=== PATIENT | female | born 1960 | race Caucasian/White ===

== ENCOUNTER 2017-08-06 18:12 | Inpatient (IN) ==
[2017-08-06] MEDS ORDERED: LEVOFLOXACIN INJ 750 MG in PREMIX 1 EACH IV STA (18:39)
[2017-08-06] MEDS ORDERED: METOCLOPRAMIDE 10 MG/2 ML VIAL IV STA (18:39)
[2017-08-06] MEDS ORDERED: SODIUM CHLORIDE 0.9% 1,000 ML IV STA (18:39)
[2017-08-06] MEDS ORDERED: ONDANSETRON 4 MG/2 ML VIAL IV STA (18:39)
[2017-08-06 19:05] LABS: Hematocrit 33.5 VOL% (35.7-47.0); Hemoglobin 10.2 GM/DL (12.0-16.0); Immature Granulocytes % 0.7 %; Immature Granulocytes Absolute 0.02 #; Lymphocytes % 35.2 % (21.3-54.2); Mean Corpuscular HGB Conc 30.4 GM/DL (32-36); Mean Corpuscular Hemoglobin 23 PG (27-34); Mean Corpuscular Volume 75.5 FL (87-102); Mean Platelet Volume 12.1 FL (9.6-12.0); Monocytes # 0.2 10*3/uL (0.11-0.8); Monocytes % 6.6 % (1.7-12.7); Neutrophils # 1.7 10*3/uL (1.4-7.4); Neutrophils % 57.5 % (38.7-73.9); Platelet Count 125 T/CUMM (130-400); Red Blood Count 4.44 MC/CUMM (3.8-5.5); Red Cell Distribution Width 15.5 % (9.3-17.3); White Blood Count 2.9 T/CUMM (4-12)
[2017-08-06] MEDS ORDERED: METOCLOPRAMIDE 10 MG/2 ML VIAL ONE (19:15)
[2017-08-06] MEDS ORDERED: ONDANSETRON 4 MG/2 ML VIAL ONE (19:15)
[2017-08-06] MEDS ORDERED: LEVOFLOXACIN INJ 0 ML IV ONE (19:15)
[2017-08-06] MEDS ORDERED: ALBUTEROL/IPRATROPIUM 3 ML NEB RESP TX STA (19:21)
[2017-08-06 19:37] LABS: Lactic Acid 1.4 MMOL/L (0.4-2.0)
[2017-08-06 19:38] LABS: Bilirubin,Total 0.4 MG/DL (0.2-1.0); Osmolality,Calculated 268.8 MOS/KG (273-304); Potassium 3.5 MMOL/L (3.5-5.1); Total Protein 6.7 G/DL (6.4-8.3)
[2017-08-06 19:46] LABS: Apearance,Urine CLOUDY (Clear); Bacteria,Urine Occasional /HPF (Few); Bilirubin,Urine Negative (Negative); Blood, Urine Large mg/dL (Negative); Glucose,Urine (UA) >=500 mg/dL (Negative); Ketones,Urine 20 mg/dL (Negative); Mucus,Urine Occasional /LPF (Occasional); Nitrite,Urine Negative (Negative); Protein,Urine 100 MG/DL; RBC,Urine 585 /HPF (0-4); Squamous Epithelial Cell,Urine Occasional /HPF (0-10); Urine Color Yellow (Yellow); Urine Specific Gravity 1.032 (1.001-1.035); Urine Urobilinogen < 2.0 EU/DL (0.2-1.0); WBC,Urine 11 /HPF (0-6)
[2017-08-06] MEDS ORDERED: GLUCAGON 1 MG VIAL IM PRN (21:42)
[2017-08-06] MEDS ORDERED: ONDANSETRON 4 MG/2 ML VIAL IV PRN (21:42)
[2017-08-06] MEDS ORDERED: DEXTROSE 50% 25 GM/50 ML VIAL IV PRN (21:42)
[2017-08-06] MEDS ORDERED: ALBUTEROL/IPRATROPIUM 3 ML NEB RESP TX PRN (21:42)
[2017-08-06] MEDS ORDERED: HYDROmorphone 2 MG/1 ML VIAL IV PRN (21:42)
[2017-08-06 22:08] LABS: Burr Cells Few; Microcytosis 1+; Platelet Estimate Decreased; Poikilocytosis 1+
[2017-08-06 22:09] LABS: Hypochromasia Slight
[2017-08-06] MEDS: INSULIN REGULAR 100 UNIT/ML SUBCUT SCH (23:00)
[2017-08-07] MEDS ORDERED: traMADol 50 MG TABLET PO PRN (00:37)
[2017-08-07] MEDS ORDERED: BENZONATATE 100 MG CAPSULE PO PRN (00:37)
[2017-08-07 06:37] LABS: Hematocrit 32.1 VOL% (35.7-47.0); Hemoglobin 9.7 GM/DL (12.0-16.0); Immature Granulocytes % 0.4 %; Immature Granulocytes Absolute 0.01 #; Lymphocytes # 1.1 10*3/uL (1.4-4.0); Lymphocytes % 45.7 % (21.3-54.2); Mean Corpuscular HGB Conc 30.2 GM/DL (32-36); Mean Corpuscular Hemoglobin 23 PG (27-34); Mean Corpuscular Volume 75.4 FL (87-102); Mean Platelet Volume 12.6 FL (9.6-12.0); Monocytes # 0.2 10*3/uL (0.11-0.8); Monocytes % 7.8 % (1.7-12.7); Neutrophils # 1.1 10*3/uL (1.4-7.4); Neutrophils % 46.1 % (38.7-73.9); Platelet Count 116 T/CUMM (130-400); Red Blood Count 4.26 MC/CUMM (3.8-5.5); Red Cell Distribution Width 15.8 % (9.3-17.3); White Blood Count 2.5 T/CUMM (4-12)
[2017-08-07 07:22] LABS: Alanine Aminotransferase 22 U/L (13-56); Albumin 2.5 G/DL (3.4-5.0); Alkaline Phosphatase 100 U/L (45-117); Aspartate Amino Transferase 34 U/L (0-37); Bilirubin,Total < 0.39 MG/DL (0.2-1.0); Blood Urea Nitrogen 9 MG/DL (7-18); Calcium 7.8 MG/DL (8.5-10.1); Glucose 184 MG/DL (74-106); Osmolality,Calculated 276.8 MOS/KG (273-304); Potassium 3.8 MMOL/L (3.5-5.1); Sodium 137 MMOL/L (136-145); Total Protein 5.6 G/DL (6.4-8.3)
[2017-08-07 07:49] LABS: Hypochromasia 2+; Macrocytosis 1+
[2017-08-07] MEDS: INSULIN REGULAR 100 UNIT/ML SUBCUT SCH ×4 (08:28→21:12)
[2017-08-07] MEDS: INSULIN GLARGINE 100 UNIT/ML SUBCUT SCH (08:30)
[2017-08-07] MEDS: amLODIPine 10 MG TABLET PO SCH (08:32)
[2017-08-07 12:43] LABS: HIV Antigen/Antibody Result Nonreactive (Nonreactive)
[2017-08-07] MEDS: LOSARTAN 25 MG TABLET PO SCH (13:15)
[2017-08-07] MEDS: SODIUM CHLORIDE 0.9% 1,000 ML IV SCH (13:15)
[2017-08-07] MEDS: ACETAMINOPHEN 325 MG TABLET PO PRN (21:11)
[2017-08-07] MEDS: ATORVASTATIN 10 MG TABLET PO SCH (21:12)
[2017-08-07] MEDS: LEVOFLOXACIN INJ 750 MG in PREMIX 1 EACH IV SCH (21:43)
[2017-08-08] MEDS: SODIUM CHLORIDE 0.9% 1,000 ML IV SCH ×2 (04:19→08:33)
[2017-08-08 06:37] LABS: Hematocrit 32.9 VOL% (35.7-47.0); Hemoglobin 9.8 GM/DL (12.0-16.0); Immature Granulocytes % 0.4 %; Immature Granulocytes Absolute 0.01 #; Lymphocytes % 43.8 % (21.3-54.2); Mean Corpuscular HGB Conc 29.8 GM/DL (32-36); Mean Corpuscular Hemoglobin 23 PG (27-34); Mean Corpuscular Volume 76.3 FL (87-102); Mean Platelet Volume 12.8 FL (9.6-12.0); Monocytes # 0.2 10*3/uL (0.11-0.8); Monocytes % 8.1 % (1.7-12.7); Neutrophils # 1.1 10*3/uL (1.4-7.4); Neutrophils % 47.7 % (38.7-73.9); Platelet Count 123 T/CUMM (130-400); Red Blood Count 4.31 MC/CUMM (3.8-5.5); Red Cell Distribution Width 15.9 % (9.3-17.3); White Blood Count 2.4 T/CUMM (4-12)
[2017-08-08 06:56] LABS: Magnesium 1.8 MG/DL (1.8-2.4); Osmolality,Calculated 282.5 MOS/KG (273-304); Potassium 3.6 MMOL/L (3.5-5.1)
[2017-08-08] MEDS: LOSARTAN 25 MG TABLET PO SCH (09:10)
[2017-08-08] MEDS: INSULIN GLARGINE 100 UNIT/ML SUBCUT SCH (09:10)
[2017-08-08] MEDS: INSULIN REGULAR 100 UNIT/ML SUBCUT SCH ×4 (09:10→20:38)
[2017-08-08] MEDS: amLODIPine 10 MG TABLET PO SCH (09:10)
[2017-08-08 11:56] LABS: Band Neutrophils 6 % (0-10); Elliptocytes 1+; Hypochromasia 2+; Lymphocytes 26 % (20-55); Microcytosis 1+; Platelet Estimate Adequate; Segmented Neutrophils 59 % (50-85); Total Cells Counted 100
[2017-08-08] MEDS: ACETAMINOPHEN 325 MG TABLET PO PRN (13:49)
[2017-08-08] MEDS: methylPREDNISolone SOD SUC 40 MG/1 ML VIAL IV SCH ×2 (14:11→21:28)
[2017-08-08 15:53] LABS: Hepatitis A Ab IgM Quant 0.13 Index; Hepatitis A Ab IgM Result Negative (Negative); Hepatitis B Core IgM Quant 0.12 Index; Hepatitis B Core IgM Result Negative (Negative); Hepatitis B Surface Ag Quant < 0.10 Index; Hepatitis B Surface Ag Result Negative (Negative); Hepatitis C Virus Ab Quant 0.16 Index; Hepatitis C Virus Ab Result Negative (Negative)
[2017-08-08] MEDS: cefTRIAXone 1,000 MG in SYRINGE 1 EACH IV SCH (18:53)
[2017-08-08] MEDS: ATORVASTATIN 10 MG TABLET PO SCH (20:38)
[2017-08-08] MEDS: LEVOFLOXACIN INJ 750 MG in PREMIX 1 EACH IV SCH (21:27)
[2017-08-09] MEDS: SODIUM CHLORIDE 0.9% 1,000 ML IV SCH ×3 (00:26→13:24)
[2017-08-09 04:11] LABS: Hematocrit 34.4 VOL% (35.7-47.0); Hemoglobin 10.4 GM/DL (12.0-16.0); Immature Granulocytes % 0.9 %; Immature Granulocytes Absolute 0.02 #; Lymphocytes # 0.8 10*3/uL (1.4-4.0); Lymphocytes % 34.5 % (21.3-54.2); Mean Corpuscular HGB Conc 30.2 GM/DL (32-36); Mean Corpuscular Hemoglobin 23 PG (27-34); Mean Corpuscular Volume 75.6 FL (87-102); Mean Platelet Volume 12.6 FL (9.6-12.0); Monocytes # 0.1 10*3/uL (0.11-0.8); Monocytes % 4.1 % (1.7-12.7); Neutrophils # 1.3 10*3/uL (1.4-7.4); Neutrophils % 60.5 % (38.7-73.9); Platelet Count 142 T/CUMM (130-400); Red Blood Count 4.55 MC/CUMM (3.8-5.5); Red Cell Distribution Width 15.9 % (9.3-17.3); White Blood Count 2.2 T/CUMM (4-12)
[2017-08-09 04:59] LABS: Osmolality,Calculated 286.3 MOS/KG (273-304); Potassium 3.5 MMOL/L (3.5-5.1)
[2017-08-09 05:09] LABS: Band Neutrophils 4 % (0-10); Eosinophils 2 % (0-10); Giant Platelets Few; Lymphocytes 41 % (20-55); Platelet Estimate Normal; Segmented Neutrophils 53 % (50-85); Total Cells Counted 100
[2017-08-09] MEDS: methylPREDNISolone SOD SUC 40 MG/1 ML VIAL IV SCH ×3 (06:21→22:37)
[2017-08-09] MEDS: INSULIN GLARGINE 100 UNIT/ML SUBCUT SCH (10:18)
[2017-08-09] MEDS: amLODIPine 10 MG TABLET PO SCH (10:18)
[2017-08-09] MEDS: LOSARTAN 25 MG TABLET PO SCH (10:18)
[2017-08-09] MEDS: INSULIN REGULAR 100 UNIT/ML SUBCUT SCH ×4 (10:19→22:35)
[2017-08-09 18:19] LABS: Apearance,Urine CLEAR (Clear); Bilirubin,Urine Negative (Negative); Blood, Urine Negative (Negative); Glucose,Urine (UA) >=500 mg/dL (Negative); Ketones,Urine 20 mg/dL (Negative); Mucus,Urine Occasional /LPF (Occasional); Nitrite,Urine Negative (Negative); Protein,Urine Negative; RBC,Urine <1 /HPF (0-4); Squamous Epithelial Cell,Urine Occasional /HPF (0-10); Urine Color Yellow (Yellow); Urine Specific Gravity 1.014 (1.001-1.035); Urine Urobilinogen < 2.0 EU/DL (0.2-1.0); WBC,Urine <1 /HPF (0-6)
[2017-08-09] MEDS: cefTRIAXone 1,000 MG in SYRINGE 1 EACH IV SCH (18:30)
[2017-08-09] MEDS: LEVOFLOXACIN INJ 750 MG in PREMIX 1 EACH IV SCH (22:37)
[2017-08-09] MEDS: ATORVASTATIN 10 MG TABLET PO SCH (22:37)
[2017-08-10] MEDS: SODIUM CHLORIDE 0.9% 1,000 ML IV SCH (01:06)
[2017-08-10] MEDS: methylPREDNISolone SOD SUC 40 MG/1 ML VIAL IV SCH ×2 (05:24→15:20)
[2017-08-10 06:45] LABS: Hemoglobin 9.9 GM/DL (12.0-16.0); Immature Granulocytes % 0.4 %; Immature Granulocytes Absolute 0.02 #; Lymphocytes # 1.1 10*3/uL (1.4-4.0); Lymphocytes % 19.5 % (21.3-54.2); Mean Corpuscular HGB Conc 30.9 GM/DL (32-36); Mean Corpuscular Hemoglobin 23 PG (27-34); Mean Corpuscular Volume 74.6 FL (87-102); Mean Platelet Volume 12.6 FL (9.6-12.0); Monocytes # 0.2 10*3/uL (0.11-0.8); Monocytes % 4.4 % (1.7-12.7); Neutrophils # 4.2 10*3/uL (1.4-7.4); Neutrophils % 75.7 % (38.7-73.9); Platelet Count 185 T/CUMM (130-400); Red Blood Count 4.29 MC/CUMM (3.8-5.5); Red Cell Distribution Width 16.2 % (9.3-17.3); White Blood Count 5.5 T/CUMM (4-12)
[2017-08-10 07:12] LABS: Calcium 8.2 MG/DL (8.5-10.1); Magnesium 2.2 MG/DL (1.8-2.4); Osmolality,Calculated 287.3 MOS/KG (273-304); Potassium 3.9 MMOL/L (3.5-5.1)
[2017-08-10] MEDS: INSULIN REGULAR 100 UNIT/ML SUBCUT SCH ×3 (07:35→17:28)
[2017-08-10] MEDS: amLODIPine 10 MG TABLET PO SCH (09:27)
[2017-08-10] MEDS: LOSARTAN 25 MG TABLET PO SCH (09:27)
[2017-08-10] MEDS: INSULIN GLARGINE 100 UNIT/ML SUBCUT SCH (09:28)
[2017-08-10 12:36] VITALS: BP 128/65
== END 2017-08-10 16:40 | disposition home or self-care (01) | DRG 195 ==
LOC: N.ED 18:12 → N.EDINP 20:23 → N.5E 20:35
PROVIDERS: ADMIT Family Medicine; ATTEND Family Medicine

== ENCOUNTER 2019-06-22 11:17 | Inpatient (IN) ==
[2019-06-22] MEDS ORDERED: SODIUM CHLORIDE 0.9% 1,000 ML IV STA (13:03)
[2019-06-22 13:47] LABS: Basophils % 0.3 % (0.0-0.8); Eosinophils # 0.1 10*3/uL (0.0-0.87); Eosinophils % 2.2 % (0.00-10.9); Hematocrit 43.5 VOL% (35.7-47.0); Hemoglobin 14.3 GM/DL (12.0-16.0); Immature Granulocytes % 0.3 %; Immature Granulocytes Absolute 0.02 #; Lymphocytes # 1.9 10*3/uL (1.4-4.0); Mean Corpuscular HGB Conc 32.9 GM/DL (32-36); Mean Corpuscular Volume 88.1 FL (87-102); Mean Platelet Volume 11.3 FL (9.6-12.0); Monocytes % 7.9 % (1.7-12.7); Neutrophils % 57.3 % (38.7-73.9); Platelet Count 221 T/CUMM (130-400); Red Blood Count 4.94 MC/CUMM (3.8-5.5); Red Cell Distribution Width 13.1 % (9.3-17.3); White Blood Count 5.9 T/CUMM (4-12)
[2019-06-22 13:54] LABS: INR 0.9; PT Patient Result 10.3 SECS (9.6-12.2); Partial Thromboplastin Time 24.7 SECS (20.8-36.0)
[2019-06-22 13:57] LABS: Apearance,Urine CLOUDY (Clear); Bilirubin,Urine Negative (Negative); Blood, Urine Negative (Negative); Glucose,Urine (UA) >=500 mg/dL (Negative); Ketones,Urine Negative (Negative); Mucus,Urine Occasional /LPF (Occasional); Nitrite,Urine Negative (Negative); Protein,Urine 30 MG/DL; Squamous Epithelial Cell,Urine Occasional /HPF (0-10); Urine Color Yellow (Yellow); Urine Urobilinogen < 2.0 EU/DL (0.2-1.0); WBC,Urine 1 /HPF (0-6)
[2019-06-22 13:59] LABS: Barbiturates Screen,Urine Negative (Negative); Benzodiazepines Screen,Urine Negative (Negative); Cannabinoid Screen,Urine Negative (Negative); Opiate Screen,Urine Negative (Negative); Phencyclidine Screen,Urine Negative (Negative)
[2019-06-22 14:11] LABS: Alanine Aminotransferase 23 U/L (13-56); Albumin 3.8 G/DL (3.4-5.0); Alkaline Phosphatase 112 U/L (45-117); Aspartate Amino Transferase 17 U/L (0-37); Blood Urea Nitrogen 11 MG/DL (7-18); Calcium 9.8 MG/DL (8.5-10.1); Estimated Glom Filtration Rate 56 ML/MIN; Glucose 300 MG/DL (74-106); Osmolality,Calculated 288.4 MOS/KG (273-304); Total Protein 7.6 G/DL (6.4-8.3)
[2019-06-22] MEDS ORDERED: ONDANSETRON 4 MG/2 ML VIAL IV PRN ×2 (15:24→17:25)
[2019-06-22] MEDS ORDERED: LABETALOL 20 MG/4 ML SYRINGE IV PRN (15:24)
[2019-06-22] MEDS ORDERED: BISACODYL 5 MG TABLET PO PRN (15:24)
[2019-06-22] MEDS ORDERED: GLUCAGON 1 MG VIAL IM PRN ×2 (15:45→17:25)
[2019-06-22] MEDS ORDERED: INSULIN LISPRO 100 UNIT/ML SUBCUT SCH (17:25)
[2019-06-22] MEDS ORDERED: ACETAMINOPHEN 325 MG TABLET PO PRN (17:25)
[2019-06-22] MEDS ORDERED: DEXTROSE 10% 250 ML BAG IV PRN (17:25)
[2019-06-22] MEDS: ASPIRIN 325 MG TABLET PO SCH (17:27)
[2019-06-22] MEDS: PANTOPRAZOLE 40 MG TABLET PO SCH (17:27)
[2019-06-22] MEDS: ENOXAPARIN 40 MG/0.4 ML SYRINGE SUBCUT SCH (17:27)
[2019-06-22] MEDS: ACETAMINOPHEN 325 MG TABLET PO PRN ×2 (17:27→20:57)
[2019-06-22] MEDS: INSULIN LISPRO 100 UNIT/ML SUBCUT SCH ×2 (17:34→20:58)
[2019-06-22] MEDS: GABAPENTIN 600 MG TABLET PO SCH ×2 (18:13→20:57)
[2019-06-22] MEDS: SODIUM CHLORIDE 0.9% 1,000 ML IV SCH (18:43)
[2019-06-22 18:57] LABS: Risk Ratio 2.23
[2019-06-22] MEDS: ROSUVASTATIN 20 MG TABLET PO SCH (20:57)
[2019-06-22] MEDS: DOCUSATE SODIUM 100 MG CAPSULE PO SCH (20:57)
[2019-06-22] MEDS ORDERED: INSULIN GLARGINE 100 UNIT/ML SUBCUT SCH (21:00)
[2019-06-23] MEDS: SODIUM CHLORIDE 0.9% 1,000 ML IV SCH (04:39)
[2019-06-23 05:58] LABS: Calcium 8.7 MG/DL (8.5-10.1); Osmolality,Calculated 290.6 MOS/KG (273-304)
[2019-06-23] MEDS ORDERED: GLIMEPIRIDE 2 MG TABLET PO SCH (08:00)
[2019-06-23] MEDS: PANTOPRAZOLE 40 MG TABLET PO SCH (08:38)
[2019-06-23] MEDS: GABAPENTIN 600 MG TABLET PO SCH ×4 (08:39→21:12)
[2019-06-23] MEDS: CLOPIDOGREL 75 MG TABLET PO SCH (08:40)
[2019-06-23] MEDS: ASPIRIN 325 MG TABLET PO SCH (08:40)
[2019-06-23] MEDS: DOCUSATE SODIUM 100 MG CAPSULE PO SCH ×2 (08:40→21:12)
[2019-06-23] MEDS: INSULIN LISPRO 100 UNIT/ML SUBCUT SCH ×4 (08:44→21:12)
[2019-06-23] MEDS ORDERED: PANTOPRAZOLE 40 MG TABLET PO SCH (09:00)
[2019-06-23] MEDS: ENOXAPARIN 40 MG/0.4 ML SYRINGE SUBCUT SCH (17:25)
[2019-06-23] MEDS ORDERED: ENOXAPARIN 80 MG/0.8 ML SYRINGE SUBCUT ONE (17:47)
[2019-06-23] MEDS ORDERED: INSULIN GLARGINE 100 UNIT/ML SUBCUT SCH (21:00)
[2019-06-23] MEDS: ROSUVASTATIN 20 MG TABLET PO SCH (21:12)
[2019-06-24] MEDS ORDERED: NITROGLYCERIN DRIP 50 MG/250 ML BOTTLE IV ONE (06:49)
[2019-06-24] MEDS ORDERED: PHENYLEPHRINE DRIP 0 MG/0 ML PREMIX IV ONE (06:49)
[2019-06-24] MEDS ORDERED: HEPARIN/NACL 0.9% 2 UNITS/ML 500 ML IV ONE (06:49)
[2019-06-24] MEDS ORDERED: TISSUE ADHESIVE 1 EACH APPLICATOR TOP ONE ×2 (07:40→12:06)
[2019-06-24] MEDS ORDERED: HEPARIN 5,000 UNIT/1 ML VIAL ONE (07:40)
[2019-06-24] MEDS ORDERED: LIDOCAINE 1% 20 ML VIAL ONE (07:40)
[2019-06-24] MEDS: DEXTROSE 10% 250 ML BAG IV PRN ×2 (07:53→13:39)
[2019-06-24] MEDS ORDERED: ceFAZolin 1,000 MG in SYRINGE 1 EACH IV ONE (08:18)
[2019-06-24] MEDS: INSULIN LISPRO 100 UNIT/ML SUBCUT SCH ×4 (08:59→21:49)
[2019-06-24] MEDS ORDERED: NALOXONE 0.4 MG/ML VIAL IV PRN (12:00)
[2019-06-24] MEDS ORDERED: HYDROmorphone 2 MG/1 ML VIAL IV PRN ×2 (12:00)
[2019-06-24] MEDS ORDERED: PROMETHAZINE 25 MG/1 ML VIAL IM PRN (12:00)
[2019-06-24] MEDS ORDERED: oxyCODONE/ACETAMINOPHEN 5-325 MG TABLET PO PRN (12:00)
[2019-06-24] MEDS ORDERED: LACTATED RINGERS 1,000 ML IV SCH (12:00)
[2019-06-24] MEDS ORDERED: LIDOCAINE 2% 5 ML VIAL ONE (12:37)
[2019-06-24] MEDS ORDERED: PROPOFOL 200 MG/20 ML VIAL IV ONE (12:37)
[2019-06-24] MEDS ORDERED: fentaNYL 100 MCG/2 ML VIAL ONE (12:37)
[2019-06-24] MEDS ORDERED: PHENYLEPHRINE DRIP 20 MG/250 ML PREMIX IV ONE (12:37)
[2019-06-24] MEDS ORDERED: ONDANSETRON 4 MG/2 ML VIAL ONE (12:38)
[2019-06-24] MEDS ORDERED: NEOSTIGMINE 10 MG/10 ML VIAL ONE (12:38)
[2019-06-24] MEDS ORDERED: GLYCOPYRROLATE 0.4 MG/2 ML VIAL ONE (12:38)
[2019-06-24] MEDS ORDERED: ROCURONIUM 100 MG/10 ML VIAL IV ONE (12:38)
[2019-06-24] MEDS ORDERED: SEVOFLURANE 1 UNIT/15 MINUTE INH ONE (12:39)
[2019-06-24] MEDS ORDERED: HEPARIN 10,000 UNIT/10 ML VIAL ONE (12:39)
[2019-06-24] MEDS ORDERED: SODIUM CHLORIDE 0.9% 1,000 ML IV ONE (12:40)
[2019-06-24] MEDS ORDERED: PROTAMINE SULFATE 50 MG/5 ML VIAL IV ONE (12:40)
[2019-06-24] MEDS ORDERED: ESMOLOL 100 MG/10 ML VIAL IV ONE (12:40)
[2019-06-24] MEDS ORDERED: KETOROLAC 30 MG/1 ML VIAL ONE (12:40)
[2019-06-24] MEDS: DOCUSATE SODIUM 100 MG CAPSULE PO SCH ×2 (13:09→21:47)
[2019-06-24] MEDS: ASPIRIN 325 MG TABLET PO SCH (13:09)
[2019-06-24] MEDS: CLOPIDOGREL 75 MG TABLET PO SCH (13:10)
[2019-06-24] MEDS: GABAPENTIN 600 MG TABLET PO SCH ×4 (13:10→21:46)
[2019-06-24] MEDS: PANTOPRAZOLE 40 MG TABLET PO SCH (13:11)
[2019-06-24] MEDS: NITROPRUSSIDE 100 MG in DEXTROSE 5% 250 ML IV SCH ×2 (13:25→14:25)
[2019-06-24] MEDS: PHENYLEPHRINE DRIP 40 MG/250 ML PREMIX IV SCH (13:25)
[2019-06-24] MEDS ORDERED: DEXTROSE 5% LACTATED RINGERS 1,000 ML IV SCH ×2 (14:30)
[2019-06-24] MEDS: oxyCODONE/ACETAMINOPHEN 5-325 MG TABLET PO PRN (21:46)
[2019-06-24] MEDS: ROSUVASTATIN 20 MG TABLET PO SCH (21:47)
[2019-06-25 04:43] LABS: Basophils % 0.3 % (0.0-0.8); Eosinophils # 0.2 10*3/uL (0.0-0.87); Eosinophils % 2.3 % (0.00-10.9); Hematocrit 35.2 VOL% (35.7-47.0); Hemoglobin 11.5 GM/DL (12.0-16.0); Immature Granulocytes % 0.3 %; Immature Granulocytes Absolute 0.02 #; Lymphocytes # 1.9 10*3/uL (1.4-4.0); Lymphocytes % 27.9 % (21.3-54.2); Mean Corpuscular HGB Conc 32.7 GM/DL (32-36); Mean Platelet Volume 11.2 FL (9.6-12.0); Monocytes % 8.8 % (1.7-12.7); Neutrophils % 60.4 % (38.7-73.9); Platelet Count 191 T/CUMM (130-400); Red Blood Count 3.87 MC/CUMM (3.8-5.5); Red Cell Distribution Width 13.3 % (9.3-17.3); White Blood Count 6.6 T/CUMM (4-12)
[2019-06-25 04:59] LABS: Calcium 8.6 MG/DL (8.5-10.1); Osmolality,Calculated 287.6 MOS/KG (273-304)
[2019-06-25 07:35] LABS: Band Neutrophils 2 % (0-10); Lymphocytes 24 % (20-55); Metamyelocytes 1 %; Platelet Estimate Normal; Segmented Neutrophils 69 % (50-85); Total Cells Counted 100
[2019-06-25 07:36] LABS: Hypochromasia Slight
[2019-06-25] MEDS: ASPIRIN 325 MG TABLET PO SCH (08:12)
[2019-06-25] MEDS: DOCUSATE SODIUM 100 MG CAPSULE PO SCH ×2 (09:03→20:35)
[2019-06-25] MEDS: GABAPENTIN 600 MG TABLET PO SCH ×4 (09:03→20:35)
[2019-06-25] MEDS: amLODIPine 10 MG TABLET PO SCH (09:03)
[2019-06-25] MEDS: PANTOPRAZOLE 40 MG TABLET PO SCH (09:03)
[2019-06-25] MEDS: CLOPIDOGREL 75 MG TABLET PO SCH (09:03)
[2019-06-25] MEDS: INSULIN LISPRO 100 UNIT/ML SUBCUT SCH ×4 (09:04→20:37)
[2019-06-25] MEDS: ASPIRIN EC 81 MG TABLET PO SCH (09:54)
[2019-06-25] MEDS: PHENYLEPHRINE DRIP 40 MG/250 ML PREMIX IV SCH (13:00)
[2019-06-25] MEDS: NITROPRUSSIDE 100 MG in DEXTROSE 5% 250 ML IV SCH (13:01)
[2019-06-25] MEDS: carvediloL 6.25 MG TABLET PO SCH ×2 (16:32→20:37)
[2019-06-25] MEDS: oxyCODONE/ACETAMINOPHEN 5-325 MG TABLET PO PRN (16:52)
[2019-06-25] MEDS: ROSUVASTATIN 20 MG TABLET PO SCH (20:36)
[2019-06-26 05:23] LABS: Basophils % 0.4 % (0.0-0.8); Eosinophils # 0.2 10*3/uL (0.0-0.87); Eosinophils % 4.4 % (0.00-10.9); Hematocrit 37.3 VOL% (35.7-47.0); Hemoglobin 11.9 GM/DL (12.0-16.0); Immature Granulocytes % 0.4 %; Immature Granulocytes Absolute 0.02 #; Lymphocytes # 1.6 10*3/uL (1.4-4.0); Lymphocytes % 30.9 % (21.3-54.2); Mean Corpuscular HGB Conc 31.9 GM/DL (32-36); Mean Corpuscular Volume 92.3 FL (87-102); Mean Platelet Volume 11.6 FL (9.6-12.0); Monocytes % 12.7 % (1.7-12.7); Neutrophils % 51.2 % (38.7-73.9); Platelet Count 166 T/CUMM (130-400); Red Blood Count 4.04 MC/CUMM (3.8-5.5); Red Cell Distribution Width 13.2 % (9.3-17.3); White Blood Count 5.2 T/CUMM (4-12)
[2019-06-26 05:46] LABS: Calcium 8.9 MG/DL (8.5-10.1); Osmolality,Calculated 289.8 MOS/KG (273-304)
[2019-06-26] MEDS: INSULIN LISPRO 100 UNIT/ML SUBCUT SCH ×4 (08:58→21:15)
[2019-06-26] MEDS: carvediloL 6.25 MG TABLET PO SCH ×2 (09:17→21:15)
[2019-06-26] MEDS: amLODIPine 10 MG TABLET PO SCH ×2 (09:17→17:45)
[2019-06-26] MEDS: DOCUSATE SODIUM 100 MG CAPSULE PO SCH (09:18)
[2019-06-26] MEDS: PANTOPRAZOLE 40 MG TABLET PO SCH (09:18)
[2019-06-26] MEDS: CLOPIDOGREL 75 MG TABLET PO SCH (09:18)
[2019-06-26] MEDS: NITROPRUSSIDE 100 MG in DEXTROSE 5% 250 ML IV SCH (13:02)
[2019-06-26] MEDS: PHENYLEPHRINE DRIP 40 MG/250 ML PREMIX IV SCH (13:02)
[2019-06-26] MEDS: ASPIRIN EC 81 MG TABLET PO SCH (17:44)
[2019-06-26] MEDS: ROSUVASTATIN 20 MG TABLET PO SCH ×2 (17:45→21:15)
[2019-06-26] MEDS: GABAPENTIN 600 MG TABLET PO SCH ×3 (17:45→21:14)
[2019-06-26] MEDS: traMADol 50 MG TABLET PO SCH ×2 (17:46→22:28)
[2019-06-26] MEDS: metFORMIN 500 MG TABLET PO SCH (17:46)
[2019-06-27] MEDS: INSULIN LISPRO 100 UNIT/ML SUBCUT SCH ×4 (08:18→23:39)
[2019-06-27] MEDS: metFORMIN 500 MG TABLET PO SCH ×2 (08:20→16:08)
[2019-06-27] MEDS: ROSUVASTATIN 20 MG TABLET PO SCH ×2 (08:20→22:15)
[2019-06-27] MEDS: ASPIRIN EC 81 MG TABLET PO SCH (08:20)
[2019-06-27] MEDS: carvediloL 6.25 MG TABLET PO SCH ×2 (08:20→22:15)
[2019-06-27] MEDS: CLOPIDOGREL 75 MG TABLET PO SCH (08:20)
[2019-06-27] MEDS: amLODIPine 10 MG TABLET PO SCH ×2 (08:21→08:29)
[2019-06-27] MEDS: traMADol 50 MG TABLET PO SCH ×3 (08:21→22:15)
[2019-06-27] MEDS: GABAPENTIN 600 MG TABLET PO SCH ×4 (08:29→22:15)
[2019-06-27] MEDS: PANTOPRAZOLE 40 MG TABLET PO SCH (08:29)
[2019-06-28] MEDS: GABAPENTIN 600 MG TABLET PO SCH (08:41)
[2019-06-28] MEDS: ROSUVASTATIN 20 MG TABLET PO SCH (08:42)
[2019-06-28] MEDS: amLODIPine 10 MG TABLET PO SCH ×2 (08:42→08:43)
[2019-06-28] MEDS: carvediloL 6.25 MG TABLET PO SCH (08:42)
[2019-06-28] MEDS: CLOPIDOGREL 75 MG TABLET PO SCH (08:42)
[2019-06-28] MEDS: ASPIRIN EC 81 MG TABLET PO SCH (08:43)
[2019-06-28] MEDS: metFORMIN 500 MG TABLET PO SCH (08:43)
[2019-06-28] MEDS: PANTOPRAZOLE 40 MG TABLET PO SCH (08:43)
[2019-06-28] MEDS: traMADol 50 MG TABLET PO SCH (08:44)
[2019-06-28] MEDS: INSULIN LISPRO 100 UNIT/ML SUBCUT SCH ×2 (09:32→12:10)
[2019-06-28 11:18] VITALS: BP 139/62
== END 2019-06-28 11:10 | disposition home health service (06) | DRG 38 ==
LOC: N.ED 11:17 → SUATTDRO 15:24 → N.EDINP 15:24 → N.4E 15:51 → N.ICU 06-24 13:01 → N.3E 06-26 11:25
PROVIDERS: ADMIT Internal Medicine; ATTEND Internal Medicine

== ENCOUNTER 2020-12-31 10:39 | Inpatient (IN) ==
[2020-12-31 11:21] LABS: Basophils % 0.4 % (0.0-0.8); Eosinophils # 0.1 10*3/uL (0.0-0.87); Eosinophils % 2.5 % (0.00-10.9); Hematocrit 38.8 VOL% (35.7-47.0); Immature Granulocytes % 0.2 %; Immature Granulocytes Absolute 0.01 #; Lymphocytes # 1.7 10*3/uL (1.4-4.0); Mean Corpuscular HGB Conc 33.5 GM/DL (32-36); Mean Corpuscular Volume 91.5 FL (87-102); Mean Platelet Volume 12.3 FL (9.6-12.0); Monocytes % 8.9 % (1.7-12.7); Platelet Count 142 T/CUMM (130-400); Red Blood Count 4.24 MC/CUMM (3.8-5.5); White Blood Count 4.7 T/CUMM (4-12)
[2020-12-31 11:32] LABS: PT Patient Result 10.8 SECS (10.5-12.0); Partial Thromboplastin Time 21.9 SECS (23.9-33.8)
[2020-12-31 11:37] LABS: Bilirubin,Urine Negative (Negative); Blood, Urine Negative (Negative); Calcium Oxalate Crystals,Urine Few /HPF (Few); Glucose,Urine (UA) >=500 mg/dL (Negative); Ketones,Urine Negative (Negative); Mucus,Urine Occasional /LPF (Occasional); Nitrite,Urine Negative (Negative); Protein,Urine Negative; RBC,Urine 2 /HPF (0-4); Squamous Epithelial Cell,Urine Occasional /HPF (0-10); Urine Appearance CLEAR (Clear); Urine Color Yellow (Yellow); Urine Specific Gravity 1.022 (1.001-1.035); Urine Urobilinogen < 2.0 EU/DL (0.2-1.0)
[2020-12-31 11:43] LABS: Alanine Aminotransferase 25 U/L (13-56); Albumin 3.4 G/DL (3.4-5.0); Alkaline Phosphatase 97 U/L (45-117); Aspartate Amino Transferase 18 U/L (0-37); Blood Urea Nitrogen 20 MG/DL (7-18); Calcium 9.2 MG/DL (8.5-10.1); Carbon Dioxide 28 MMOL/L (21-32); Estimated Glom Filtration Rate 74 ML/MIN; Glucose 331 MG/DL (74-106); Osmolality,Calculated 288.8 MOS/KG (273-304); Sodium 137 MMOL/L (136-145); Total Protein 6.5 G/DL (6.4-8.2)
[2020-12-31 11:44] LABS: Barbiturates Screen,Urine Negative (Negative); Benzodiazepines Screen,Urine Negative (Negative); Cannabinoid Screen,Urine Negative (Negative); Opiate Screen,Urine Negative (Negative); Phencyclidine Screen,Urine Negative (Negative)
[2020-12-31] MEDS ORDERED: GLUCAGON 1 MG VIAL IM PRN ×2 (12:51→14:43)
[2020-12-31] MEDS ORDERED: DEXTROSE 50% 25 GM/50 ML VIAL IV PRN ×2 (12:51→14:43)
[2020-12-31] MEDS ORDERED: ASPIRIN 300 MG SUPP RECTAL STA (13:01)
[2020-12-31] MEDS ORDERED: LABETALOL 20 MG/4 ML SYRINGE IV PRN (13:03)
[2020-12-31] MEDS: INSULIN LISPRO 100 UNIT/ML SUBCUT SCH ×2 (17:58→23:13)
[2021-01-01 05:18] LABS: Basophils % 0.5 % (0.0-0.8); Eosinophils # 0.2 10*3/uL (0.0-0.87); Eosinophils % 2.9 % (0.00-10.9); Hematocrit 39.5 VOL% (35.7-47.0); Hemoglobin 13.9 GM/DL (12.0-16.0); Immature Granulocytes % 0.2 %; Immature Granulocytes Absolute 0.01 #; Lymphocytes # 1.6 10*3/uL (1.4-4.0); Lymphocytes % 27.3 % (21.3-54.2); Mean Corpuscular HGB Conc 35.2 GM/DL (32-36); Mean Corpuscular Volume 89.6 FL (87-102); Mean Platelet Volume 11.9 FL (9.6-12.0); Monocytes % 7.6 % (1.7-12.7); Neutrophils % 61.5 % (38.7-73.9); Platelet Count 146 T/CUMM (130-400); Red Blood Count 4.41 MC/CUMM (3.8-5.5); Red Cell Distribution Width 11.9 % (9.3-17.3); White Blood Count 5.8 T/CUMM (4-12)
[2021-01-01 05:42] LABS: Calcium 8.8 MG/DL (8.5-10.1); Osmolality,Calculated 285.4 MOS/KG (273-304); Risk Ratio 2.38; Thyroid Stimulating Hormone 2.16 uIU/ml (0.358-3.74)
[2021-01-01] MEDS: INSULIN LISPRO 100 UNIT/ML SUBCUT SCH ×3 (05:57→17:06)
[2021-01-01] MEDS: GABAPENTIN 300 MG CAPSULE PO SCH ×3 (13:09→21:40)
[2021-01-01] MEDS ORDERED: INSULIN GLARGINE 100 UNIT/ML SUBCUT SCH ×2 (21:00)
[2021-01-01] MEDS ORDERED: ATORVASTATIN 80 MG TABLET PO SCH (21:00)
[2021-01-01] MEDS ORDERED: CLOPIDOGREL 75 MG TABLET PO SCH (21:00)
[2021-01-02] MEDS: INSULIN LISPRO 100 UNIT/ML SUBCUT SCH ×2 (01:43→06:11)
[2021-01-02 05:21] LABS: Basophils % 0.3 % (0.0-0.8); Eosinophils # 0.2 10*3/uL (0.0-0.87); Eosinophils % 2.7 % (0.00-10.9); Hematocrit 43.8 VOL% (35.7-47.0); Hemoglobin 14.5 GM/DL (12.0-16.0); Immature Granulocytes % 0.1 %; Immature Granulocytes Absolute 0.01 #; Lymphocytes # 1.9 10*3/uL (1.4-4.0); Mean Corpuscular HGB Conc 33.1 GM/DL (32-36); Monocytes % 9.6 % (1.7-12.7); Neutrophils % 60.3 % (38.7-73.9); Platelet Count 148 T/CUMM (130-400); Red Blood Count 4.71 MC/CUMM (3.8-5.5); Red Cell Distribution Width 11.9 % (9.3-17.3)
[2021-01-02 05:37] LABS: Calcium 9.4 MG/DL (8.5-10.1)
[2021-01-02] MEDS: GABAPENTIN 300 MG CAPSULE PO SCH ×2 (08:53→12:50)
[2021-01-02] MEDS ORDERED: INSULIN LISPRO 100 UNIT/ML SUBCUT SCH (11:30)
[2021-01-02 11:50] VITALS: BP 161/78
== END 2021-01-02 15:05 | DRG 65 ==
LOC: N.ED 10:39 → N.EDINP 12:51 → N.TELEN 14:54
PROVIDERS: ADMIT Internal Medicine; ATTEND Internal Medicine